=== PATIENT | female | born 1955 | race Caucasian/White ===

== ENCOUNTER → 2021-07-16 | Outpatient (CLI) | payer BC ==
--- NOTE | 2021-07-16 16:31 | RAD ---
EXAMINATION: XR KNEE 3 VIEWS_RT CLINICAL HISTORY: POST OPERATIVE STATE, PAIN. TECHNIQUE: XR KNEE 3 VIEWS_RT Number of Images/Views: 3 COMPARISON: None FINDINGS: Mild medial compartment narrowing. Tricompartmental tiny marginal osteophytes. No acute fracture. No joint effusion. IMPRESSION: Mild degenerative changes right knee medial compartment. Electronically signed by: Toby Forrest DO (07/16/2021 4:29 PM) [id number]
== END ==
LOC: RAD 15:48
PROVIDERS: ATTEND Physician Assistant
DX: M17.11 Unilateral primary osteoarthritis, right knee (principal); M25.761 Osteophyte, right knee; Z98.890 Other specified postprocedural states
CPT/HCPCS: 73562